=== PATIENT | male | born 1935 | race Caucasian/White ===

== ENCOUNTER → 2019-08-20 06:00 | Outpatient (REF) | payer MEDICARE, SELFPAY | LOC: ANHLAB 06:00 | PROVIDERS: Visit Provider Nurse Practitioner Family | DX: C44.321 Squamous cell carcinoma of skin of nose (principal); C44.222 Squamous cell carcinoma of skin of right ear and external auricular canal | CPT/HCPCS: 88305; 88331 ==

== ENCOUNTER → 2020-02-11 08:19 | Outpatient (REF) | payer MEDICARE, SELFPAY | LOC: ANHLAB 08:19 | PROVIDERS: Visit Provider Nurse Practitioner Family | DX: C44.320 Squamous cell carcinoma of skin of unspecified parts of face (principal); C44.329 Squamous cell carcinoma of skin of other parts of face; C44.612 Basal cell carcinoma of skin of right upper limb, including shoulder | CPT/HCPCS: 88305; 88331 ==